=== PATIENT | female | born 1990 | race Caucasian/White ===

== ENCOUNTER → 2018-08-20 | Outpatient (REF) | payer OTHER ==
[2018-08-20 20:06] LABS: BASO # 0.1 10^3/uL (0.0-0.2); BASO % 0.9 % (0.0-1.0); EOS # 0.2 10^3/uL (0.0-0.50); EOS % 2.9 % (0.0-3.0); HEMATOCRIT 40.4 % (36.0-47.0); HEMOGLOBIN 13.1 g/dl (12.0-15.5); IMMATURE GRANULOCYTE % 0.3 % (0-3.0); LYMPH # 2.3 10^3/uL (1.5-6.5); MEAN CORPUSCULAR HEMOGLOBIN 28.6 pg (27.0-33.0); MEAN CORPUSCULAR HGB CONC 32.4 g/dl (32.0-36.5); MEAN CORPUSCULAR VOLUME 88.2 fl (80.0-96.0); MONO # 0.4 10^3/uL (0.0-0.8); MONO % 5.9 % (0.0-5.0); NEUTROPHILS # 3.7 10^3/uL (1.8-7.7); PLATELET COUNT, AUTOMATED 240 10^3/uL (150-450); RED BLOOD COUNT 4.58 10^6/uL (4.00-5.40); RED CELL DISTRIBUTION WIDTH 12.5 % (11.5-14.5); WHITE BLOOD COUNT 6.7 10^3/uL (4.0-10.0)
[2018-08-20 20:25] LABS: ALBUMIN 3.8 GM/DL (3.2-5.2); ALBUMIN/GLOBULIN RATIO 1.06 (1.00-1.93); ALKALINE PHOSPHATASE 58 U/L (45-117); ALT/SGPT 19 U/L (12-78); ANION GAP 6 MEQ/L (8-16); AST/SGOT 14 U/L (7-37); BILIRUBIN,TOTAL 0.2 MG/DL (0.2-1.0); BLOOD UREA NITROGEN 13 MG/DL (7-18); CALCIUM LEVEL 8.4 MG/DL (8.5-10.1); CARBON DIOXIDE LEVEL 29 MEQ/L (21-32); CHLORIDE LEVEL 106 MEQ/L (98-107); CREATININE FOR GFR 0.62 MG/DL (0.55-1.30); GLOMERULAR FILTRATION RATE > 60.0 (>60); GLUCOSE, FASTING 86 MG/DL (70-100); POTASSIUM SERUM 4.1 MEQ/L (3.5-5.1); SODIUM LEVEL 141 MEQ/L (136-145); TOTAL PROTEIN 7.4 GM/DL (6.4-8.2)
== END ==
LOC: M LAB REF 19:01
DX: Z13.9 Encounter for screening, unspecified (principal)
CPT/HCPCS: 84443

== ENCOUNTER → 2018-11-11 | Outpatient (CLI) | payer OTHER ==
[2018-11-11 13:49] LABS: BASO # 0.1 10^3/uL (0.0-0.2); BASO % 0.9 % (0.0-1.0); EOS # 0.1 10^3/uL (0.0-0.50); EOS % 1.4 % (0.0-3.0); HEMATOCRIT 39.5 % (36.0-47.0); HEMOGLOBIN 13.2 g/dl (12.0-15.5); LYMPH # 1.5 10^3/uL (1.5-6.5); LYMPH % 23.2 % (24.0-44.0); MEAN CORPUSCULAR HEMOGLOBIN 29.1 pg (27.0-33.0); MEAN CORPUSCULAR HGB CONC 33.4 g/dl (32.0-36.5); MONO # 0.4 10^3/uL (0.0-0.8); MONO % 5.5 % (0.0-5.0); NEUTROPHILS # 4.4 10^3/uL (1.8-7.7); NEUTROPHILS % 68.5 % (36.0-66.0); PLATELET COUNT, AUTOMATED 237 10^3/uL (150-450); RED BLOOD COUNT 4.54 10^6/uL (4.00-5.40); WHITE BLOOD COUNT 6.4 10^3/uL (4.0-10.0)
[2018-11-11 14:59] LABS: CHLAMYDIA DNA AMPLIFICATION NEGATIVE (NEGATIVE); GC DNA AMPLIFICATION NEGATIVE (NEGATIVE)
[2018-11-12 11:08] LABS: HEPATITIS C VIRUS ABY INDEX 0.1 INDEX (<0.8); HIV 1&2 SCREEN CENTAUR NEGATIVE (NEGATIVE); RUBELLA IgG QUALITATIVE IMMUNE (IMMUNE)
== END ==
LOC: M SMT 10:48
PROVIDERS: ATTEND Advanced Practice Midwife
DX: Z36.89 Encounter for other specified antenatal screening (principal)

== ENCOUNTER → 2019-02-17 | Outpatient (CLI) | payer OTHER ==
--- NOTE | 2019-02-17 19:48 | REP ---
OB ULTRASOUND: Real-time sonographic evaluation of the gravid uterus is performed utilizing transabdominal technique. There is a single living intrauterine gestation with estimated gestational age 24 weeks. EDC 06/09/2019. Today's measurements indicate appropriate growth. BPD 61 mm 24 weeks 5 days, 65th percentile. HC 224 mm 24 weeks 3 days, 58th percentile. AC 217 mm 26 weeks 1 day, 95th percentile. Femur length 43 mm 24 weeks 0 days, 52nd percentile. HC/AC ratio 1.03 within normal range. Estimated weight 779 grams, 81st percentile. Cervix is closed measures 5.5 cm in length. heart rate 139 beats per minute. SEEN/GROSSLY UNREMARKABLE Lateral ventricles Yes Posterior fossa Yes Upper lip Yes Four-chamber heart Yes LVOT Yes RVOT Yes Stomach Yes Cord insertion Yes Three vessel cord Yes Kidneys Yes Bladder Yes Spine Yes position: Vertex. Placenta: Anterior and grade 0 with no previa or abruption. Amniotic fluid: Within normal limits. Electronically Signed by Ankit Hernandez MD 02/18/2019 10:34 A
== END ==
LOC: M RAD 14:01
PROVIDERS: ATTEND Specialist
DX: Z34.82 Encounter for supervision of other normal pregnancy, second trimester (principal); Z3A.24 24 weeks gestation of pregnancy

== ENCOUNTER → 2019-03-05 | Outpatient (CLI) | payer OTHER ==
[2019-03-05 13:30] LABS: BASO # 0.1 10^3/uL (0.0-0.2); BASO % 0.7 % (0.0-1.0); EOS # 0.2 10^3/uL (0.0-0.50); HEMATOCRIT 37.8 % (36.0-47.0); HEMOGLOBIN 12.2 g/dl (12.0-15.5); LYMPH # 1.4 10^3/uL (1.5-6.5); LYMPH % 18.8 % (24.0-44.0); MEAN CORPUSCULAR HEMOGLOBIN 28.5 pg (27.0-33.0); MEAN CORPUSCULAR HGB CONC 32.3 g/dl (32.0-36.5); MEAN CORPUSCULAR VOLUME 88.3 fl (80.0-96.0); MONO # 0.4 10^3/uL (0.0-0.8); MONO % 5.9 % (0.0-5.0); NEUTROPHILS # 5.4 10^3/uL (1.8-7.7); NEUTROPHILS % 71.9 % (36.0-66.0); PLATELET COUNT, AUTOMATED 232 10^3/uL (150-450); RED BLOOD COUNT 4.28 10^6/uL (4.00-5.40); WHITE BLOOD COUNT 7.5 10^3/uL (4.0-10.0)
== END ==
LOC: M SMT 11:13
PROVIDERS: ATTEND Specialist
DX: Z34.82 Encounter for supervision of other normal pregnancy, second trimester (principal); Z3A.00 Weeks of gestation of pregnancy not specified
CPT/HCPCS: 36415; 82950; 85025; 86850; 86900; 86901; J2790

== ENCOUNTER → 2019-05-13 | Outpatient (REF) | payer OTHER | LOC: M LAB REF 13:00 | PROVIDERS: ATTEND Advanced Practice Midwife | DX: Z34.83 Encounter for supervision of other normal pregnancy, third trimester (principal) ==

== ENCOUNTER → 2019-05-13 | Outpatient (CLI) | payer OTHER | LOC: M SMT 10:56 | PROVIDERS: ATTEND Advanced Practice Midwife | DX: Z34.83 Encounter for supervision of other normal pregnancy, third trimester (principal) ==

== ENCOUNTER 2019-05-25 10:02 | Inpatient (IN) | payer OTHER ==
[~2019-05-25] VITALS: Ht 147.3 cm; Wt 84.6 kg
[2019-05-25] VITALS (29 sets, daily range): BP systolic 79–133; BP diastolic 40–85
[2019-05-25] MEDS ORDERED: PRENTAB9 PO (10:24)
[2019-05-25] MEDS ORDERED: LACTATED RINGER'S 1000 ML IV STA (10:27)
[2019-05-25 11:17] LABS: HEMATOCRIT 38.2 % (36.0-47.0); HEMOGLOBIN 12.5 g/dl (12.0-15.5); MEAN CORPUSCULAR HEMOGLOBIN 27.5 pg (27.0-33.0); MEAN CORPUSCULAR HGB CONC 32.7 g/dl (32.0-36.5); MEAN CORPUSCULAR VOLUME 84.1 fl (80.0-96.0); PLATELET COUNT, AUTOMATED 194 10^3/uL (150-450); RED BLOOD COUNT 4.54 10^6/uL (4.00-5.40)
[2019-05-25] MEDS ORDERED: FENTANYL 2MCG/ML ROPIVACAINE 0.2% IN 0.9% NACL 100ML IVBAG As Ordered ONE (11:31)
[2019-05-25] MEDS: LR 1,000 ML IV SCH ×2 (11:56→13:12)
[2019-05-25] MEDS ORDERED: ePHEDrine SULFATE 25 MG/5 ML(5MG/ML) SYRINGE As Ordered ONE (12:49)
[2019-05-25] MEDS: ePHEDrine SULFATE 25 MG/5 ML(5MG/ML) SYRINGE IV PRN ×6 (12:51→14:27)
[2019-05-25] MEDS ORDERED: REFRIGERATOR IV KEYS XX PRN (13:00)
[2019-05-25] MEDS ORDERED: EPIDURAL COMMENT XX SCH (13:00)
[2019-05-25] MEDS ORDERED: diphenhydrAMINE INJ 50MG/ML VIAL (J1200) IV PRN (13:00)
[2019-05-25] MEDS ORDERED: EPIDURAL/PCA KEYS XX PRN (13:00)
[2019-05-25] MEDS ORDERED: FENTANYL/ROPIVACAINE/NACL BAG 100 ML EPIDURAL SCH (13:00)
[2019-05-25] MEDS ORDERED: ONDANSETRON 4MG/2ML VIAL (J2405) IV PRN (13:00)
[2019-05-25] MEDS ORDERED: NALOXONE INJ 0.4 MG/1 ML VIAL (J2310) IV PRN (13:00)
[2019-05-25] MEDS ORDERED: ePHEDrine SULFATE 25 MG/5 ML(5MG/ML) SYRINGE IV SCH (14:30)
[2019-05-25] MEDS ORDERED: OXYTOCIN 30 UNITS IN 0.9% NaCl 500ML IV BAG (J2590) As Ordered ONE (15:23)
--- NOTE | 2019-05-25 15:30 | HPE ---
DATE OF ADMISSION: 05/25/2019 Morenita is a 29-year-old female who is a 2, para 1-0-0-1 at 37 weeks and 6 days gestation with an estimated date of delivery (DALLIN) of 06/09/2019 based off of her last menstrual period (LMP) and consistent with her first trimester ultrasound. The patient initiated care in her first trimester with [facility]. Her has been complicated by asthma which she is using a Ventolin inhaler for as needed. The patient presents to labor and delivery with complaints of spontaneous rupture of membranes at 0800. She reports clear fluid and reports regular painful contractions. She reports active movement of her fetus and denies vaginal bleeding. ALLERGIES: SULFA. CURRENT MEDICATIONS: Ventolin HFA 108 and vitamins. PAST PREGNANCIES: April 2015 at 37 weeks gestation, she had a vaginal delivery of a living female weighing 6 pounds, 8 ounces with no complications. LABORATORY DATA: The patient's blood type is O negative and antibody screen is negative. Her first trimester hemoglobin and hematocrit were 13.2 and 39.5 with platelets of 237. Her rubella is immune. Her VDRL is nonreactive. Urine had no growth. Hepatitis B surface antigen is negative. HIV is negative. Hepatitis C is nonreactive. Gonorrhea and Chlamydia are both negative. She declined genetic testing. Her one-hour glucose tolerance test was 124 with hemoglobin and hematocrit 12.3 and 37.8 with platelets of 232. Her third trimester HIV was negative and her GBS is negative. PAST MEDICAL HISTORY: Asthma. PAST SURGICAL HISTORY: Marland teeth. FAMILY HISTORY: Hypertension, heart disease, multiple sclerosis, lupus, and thyroid issues. SOCIAL HISTORY: The patient is . She denies any history of sexually transmitted infections. She denies any history or current use of tobacco, alcohol or illicit drug use. VITAL SIGNS: Blood pressure 109/65, heart rate 72, respiratory rate 18, temperature 98.1. heart rate 135, moderate variability, positive accelerations, no decelerations. Contractions every 2-3 minutes. STERILE VAGINAL EXAMINATION: 4 cm dilated, 100% effaced, -1 station. PHYSICAL ASSESSMENT: GENERAL: Alert and oriented times three. RESPIRATORY: Regular rate and rhythm with no use of accessory muscles. ABDOMEN: Gravid and nontender touch. Palpates moderate with contraction. Cephalic presentation noted via sterile vaginal examination (SVE) and Hugo's maneuver. PERINEUM: Moderate amount of clear fluid leaking from vaginal introitus with a positive Nitrazine and no amniotic sac felt with vaginal examination. ASSESSMENT: Intrauterine (IUP) at 37 weeks and 6 days gestation, spontaneous rupture of membranes, active labor, category 1 heart rate tracing, negative group B Streptococcus (GBS). PLAN: Admit the patient to labor and delivery. Out of bed ad carlie. Clear liquid diet. Saline lock and laboratories per protocol. Anesthesia consult per the patient's request. An 800 mL bolus of lactated ringers prior to epidural. Anticipate cervical change and spontaneous vaginal delivery. MTDD
[2019-05-25] MEDS ORDERED: SLF 3 ML SYR IV PRN ×2 (17:15→18:30)
[2019-05-25] MEDS ORDERED: OXYTOCIN DRIP 30 UNITS in APPROPRIATE DILUENT 1 EA IV SCH (17:25)
[2019-05-25] MEDS ORDERED: IBUPROFEN 800 MG TAB PO PRN (17:30)
[2019-05-25] MEDS ORDERED: ANUSOL HC CREAM 30GM TOP PRN (17:30)
[2019-05-25] MEDS ORDERED: DOCUSATE SODIUM 100 MG CAP PO PRN (17:30)
[2019-05-25] MEDS ORDERED: MEASLES,MUMPS,RUBELLA VACCINE INJ (MMR-II) (90707) SC SCH (17:30)
[2019-05-25] MEDS ORDERED: DIBUCAINE 1% OINTMENT 30GM TOP PRN (17:30)
[2019-05-25] MEDS ORDERED: METHYLERGONOVINE MALEATE 0.2 MG TAB PO PRN (17:30)
[2019-05-25] MEDS ORDERED: RHOGAM 300 MCG (1500 IU) INJ (J2790) IM SCH (17:30)
[2019-05-25] MEDS ORDERED: ACETAMINOPHEN TAB 650MG DOSE (2X325MG) PO PRN (17:30)
[2019-05-25] MEDS: SLF 3 ML SYR IV SCH (22:32)
[2019-05-26] MEDS: ACETAMINOPHEN 500 MG TAB PO PRN ×2 (00:06→20:28)
[2019-05-26] MEDS: SLF 3 ML SYR IV SCH ×3 (05:40→21:22)
[2019-05-26 06:49] VITALS: BP 121/74
--- NOTE | 2019-05-26 07:59 | DN ---
DATE: 05/25/2019 Delivery date and time: 05/25/2019 at 1547. STATUS: Delivered. Spontaneous vaginal delivery. PROVIDER: Mariam Ruvalcaba CNM, WHNP. ANESTHESIA: Epidural. ESTIMATED BLOOD LOSS: 250 mL. FINDINGS: Male, 6 pounds, 14 ounces, 3120 grams, nuchal cord times one loose, Apgars 7/9. Patient is a 29-year-old female who is now a 2, para 2-0-0-2 at 37 weeks 6 days gestation who presented to labor and delivery in active labor and spontaneous rupture of membranes, which occurred at 0800. The patient received epidural for pain management and progressed to fully dilated at 1509. She pushed to a living male in the right occiput anterior (BETTYE) position with restitution to right occiput transverse (ROT). A nuchal cord times one loose was noted. The anterior shoulder delivered with ease and the corpus immediately followed. The baby was placed on the maternal abdomen active and crying. The cord was clamped times two after pulsation ceased and cut by the father of the baby. A three-vessel cord was noted. The placenta delivered spontaneously and intact at 1553. Uterine hemostasis was achieved via rapid infusion of IV Pitocin and fundal massage. The perineum, cervix, vagina, was inspected and found to have a periurethral abrasion that was not repaired due to good hemostasis. Mom plans to breast-feed her and they plan on naming him Kong. Both mom and baby are in stable condition. All counts of instruments and sponges are correct.
[2019-05-26] MEDS: PRENATAL VITAMINS CHEWABLE TABLET PO SCH (08:13)
[2019-05-26] MEDS: IBUPROFEN 600 MG TAB PO PRN (08:14)
[2019-05-26 18:12] VITALS: BP 128/58
[2019-05-27 05:10] VITALS: BP 120/68
[2019-05-27] MEDS: SLF 3 ML SYR IV SCH (05:10)
[2019-05-27] MEDS: IBUPROFEN 600 MG TAB PO PRN (07:30)
[2019-05-27] MEDS: PRENATAL VITAMINS CHEWABLE TABLET PO SCH (07:31)
== END 2019-05-27 11:40 | disposition home or self-care (01) | DRG 807 ==
LOC: M LDO 10:02 → M LDI 10:16 → M OBS 18:15
PROVIDERS: ADMIT Advanced Practice Midwife; ATTEND Advanced Practice Midwife
PROC: 10E0XZZ Delivery of Products of Conception, External Approach (ICD-10-PCS; principal; 2019-05-25)
DX: O69.81X0 Labor and delivery complicated by cord around neck, without compression, not applicable or unspecified (principal); Z37.0 Single live birth; Z3A.37 37 weeks gestation of pregnancy

== ENCOUNTER → 2019-08-31 | Outpatient (CLI) | payer OTHER ==
[~2019-08-31] MED LIST: PRENTAB9 PO
--- NOTE | 2019-09-01 03:45 | REP ---
Clinical: Pelvic and perineal pain . Technique: Transabdominal pelvic ultrasound followed by transvaginal examination for better evaluation of the endometrium and adnexa with color Doppler evaluation of the ovaries. Findings: Bladder is unremarkable and measures 8.9 x 8.7 x 8.6 cm . Normal retroverted uterus measures 5.4 x 3.2 x 4.0 cm . The endometrial complex measures 2.6 mm thickness. No discrete uterine or endometrial abnormalities are appreciated. IUD identified in satisfactory position. Bilateral ovaries are normal in appearance and vascularity without evidence for torsion. Right ovary measures 3.3 x 2.2 x 2.7 cm ; R I = 0.52 . Left ovary measures 3.2 x 1.7 x 2.3 cm ; R I = 0.54 . No pelvic fluid or adnexal mass lesion . Impression: 1. normal pelvic ultrasound Electronically Signed by Herminio Trammell MD 09/01/2019 03:37 A
== END ==
LOC: M RAD 10:16
PROVIDERS: ATTEND Advanced Practice Midwife
DX: R10.9 Unspecified abdominal pain (principal)

== ENCOUNTER → 2019-10-08 | Outpatient (REF) | payer OTHER | LOC: M SFHCWAGY 13:22 | PROVIDERS: ATTEND Advanced Practice Midwife | DX: Z12.4 Encounter for screening for malignant neoplasm of cervix (principal) ==

== ENCOUNTER 2019-10-19 09:50 | Outpatient (RCR) | payer OTHER | END 2019-10-27 | LOC: M PT 09:50 | PROVIDERS: ATTEND Advanced Practice Midwife | DX: N39.3 Stress incontinence (female) (male) (principal) ==

== ENCOUNTER 2019-11-26 11:51 | Outpatient (RCR) | payer OTHER | END 2019-11-27 | LOC: M PT 11:51 | PROVIDERS: ATTEND Advanced Practice Midwife | DX: N39.3 Stress incontinence (female) (male) (principal) ==

== ENCOUNTER 2019-12-10 14:00 | Outpatient (RCR) | payer OTHER | END 2019-12-26 | LOC: M PT 14:00 | PROVIDERS: ATTEND Advanced Practice Midwife | DX: N39.3 Stress incontinence (female) (male) (principal) ==

== ENCOUNTER → 2020-11-08 | Outpatient (REF) | payer OTHER | LOC: M SFHCWAGY 13:30 | PROVIDERS: ATTEND Advanced Practice Midwife | DX: Z12.4 Encounter for screening for malignant neoplasm of cervix (principal) | CPT/HCPCS: G0123; G0463 ==

== ENCOUNTER → 2021-03-08 | Outpatient (REF) | payer OTHER ==
[2021-03-08 12:51] LABS: BASO # 0.1 10^3/uL (0.0-0.2); BASO % 1.5 % (0.0-1.0); EOS # 0.1 10^3/uL (0.0-0.5); EOS % 2.4 % (0.0-3.0); HEMATOCRIT 44.6 % (36.0-47.0); HEMOGLOBIN 14.5 g/dl (12.0-15.5); LYMPH # 1.9 10^3/uL (1.5-5.0); LYMPH % 34.5 % (24.0-44.0); MEAN CORPUSCULAR HEMOGLOBIN 28.3 pg (27.0-33.0); MEAN CORPUSCULAR HGB CONC 32.5 g/dl (32.0-36.5); MEAN CORPUSCULAR VOLUME 87.1 fl (80.0-96.0); MONO # 0.4 10^3/uL (0.0-0.8); MONO % 6.6 % (2.0-8.0); NEUTROPHILS % 54.6 % (36.0-66.0); PLATELET COUNT, AUTOMATED 222 10^3/uL (150-450); RED BLOOD COUNT 5.12 10^6/uL (4.00-5.40); WHITE BLOOD COUNT 5.4 10^3/uL (4.0-10.0)
[2021-03-08 13:08] LABS: HEMOGLOBIN A1c 5.1 %
[2021-03-08 13:28] LABS: ALBUMIN 4.2 GM/DL (3.2-5.2); ALT/SGPT 21 U/L (12-78); BILIRUBIN,TOTAL 0.5 MG/DL (0.2-1.0); BLOOD UREA NITROGEN 10 MG/DL (7-18); CALCIUM LEVEL 8.9 MG/DL (8.5-10.1); CARBON DIOXIDE LEVEL 31 MEQ/L (21-32); CHLORIDE LEVEL 106 MEQ/L (98-107); CHOLESTEROL LEVEL 168 MG/DL (<200); CREATININE FOR GFR 0.68 MG/DL (0.55-1.30); FREE T4 0.95 NG/DL (0.76-1.46); GLOMERULAR FILTRATION RATE > 60.0 (>60); GLUCOSE, FASTING 94 MG/DL (70-100); HDL CHOLESTEROL 56 MG/DL (>40); LDL CHOLESTEROL 89 MG/DL (<100); NON-HDL-C 112 MG/DL; POTASSIUM SERUM 4.1 MEQ/L (3.5-5.1); SODIUM LEVEL 140 MEQ/L (136-145); TOTAL PROTEIN 7.7 GM/DL (6.4-8.2); TRIGLYCERIDES LEVEL 116 MG/DL (<150)
[2021-03-08 13:33] LABS: TOTAL 25(OH) VITAMIN D 20.2 NG/ML (30.0-100.0)
[2021-03-08 14:12] LABS: HEPATITIS C VIRUS ABY INDEX < 0.0 INDEX (<0.8)
[2021-03-08 14:13] LABS: HIV 1&2 SCREEN CENTAUR NEGATIVE (NEGATIVE)
== END ==
LOC: M LAB REF 12:12
PROVIDERS: ATTEND Nurse Practitioner Family
DX: Z13.29 Encounter for screening for other suspected endocrine disorder (principal); Z13.228 Encounter for screening for other metabolic disorders; F41.9 Anxiety disorder, unspecified; E66.9 Obesity, unspecified